=== PATIENT | female | born 1955 | race Caucasian/White ===

== ENCOUNTER 2018-09-29 09:50 | Emergency (ER) | payer MEDICARE, MEDICAID ==
[~2018-09-29] VITALS: Ht 160 cm; Wt 92.0 kg
[2018-09-29 11:17] LABS: URINE BILIRUBIN - DIPSTICK NEGATIVE (NEGATIVE); URINE BLOOD DIPSTICK TRACE-INTACT (NEGATIVE); URINE GLUCOSE - DIPSTICK NEGATIVE (NEGATIVE); URINE KETONE NEGATIVE (NEGATIVE); URINE NITRITE - DIPSTICK NEGATIVE (Negative); URINE PROTEIN - DIPSTICK NEGATIVE (NEG-TRACE); URINE SPECIFIC GRAVITY 1.015; URINE UROBILINOGEN - DIPSTICK 0.2 E.U./dL (0.2)
[2018-09-29 11:20] LABS: URINE LEUK ESTERASE MODERATE (NEGATIVE)
[2018-09-29 11:21] LABS: URINE CLARITY SL CLOUDY; URINE COLOR STRAW
[2018-09-29 11:22] LABS: URINE BACTERIA FEW hpf; URINE EPITHELIAL CELLS FEW EPI/hpf (0-FEW); URINE RBC 0-2 RBC/hpf (0-5)
[2018-09-29] MEDS ORDERED: CIPROFLOXACN500 MG PO (11:27)
[2018-09-29 11:51] VITALS: BP 121/76
== END 2018-09-29 11:51 | disposition home or self-care (01) ==
LOC: ED 09:50
PROVIDERS: Emergency Medicine
PROC: 0T2BX0Z Change Drainage Device in Bladder, External Approach (ICD-10-PCS; principal; 2018-09-29)
DX: N39.0 Urinary tract infection, site not specified (principal); B96.1 Klebsiella pneumoniae [K. pneumoniae] as the cause of diseases classified elsewhere; Z86.73 Personal history of transient ischemic attack (TIA), and cerebral infarction without residual deficits; Z86.718 Personal history of other venous thrombosis and embolism

== ENCOUNTER 2018-12-01 15:12 | Emergency (ER) | payer MEDICARE, OTHER ==
[~2018-12-01] VITALS: Ht 160 cm; Wt 120.0 kg
[~2018-12-01 15:12] MED LIST: CIPROFLOXACN500 MG PO
[2018-12-01 15:47] LABS: URINE BILIRUBIN - DIPSTICK NEGATIVE (NEGATIVE); URINE BLOOD DIPSTICK NEGATIVE (NEGATIVE); URINE COLOR YELLOW; URINE GLUCOSE - DIPSTICK NEGATIVE (NEGATIVE); URINE KETONE NEGATIVE (NEGATIVE); URINE NITRITE - DIPSTICK NEGATIVE (Negative); URINE PROTEIN - DIPSTICK NEGATIVE (NEG-TRACE); URINE UROBILINOGEN - DIPSTICK 0.2 E.U./dL (0.2)
[2018-12-01 15:51] LABS: URINE LEUK ESTERASE SMALL (NEGATIVE); URINE RBC 0-2 RBC/hpf (0-5); URINE SQUAMOUS EPITHELIAL CELL FEW EPI/hpf (0-FEW)
[2018-12-01 16:27] LABS: HEMATOCRIT 41.4 % (37.0-47.0); HEMOGLOBIN 12.8 g/dl (12.0-16.0); IMMATURE GRANULOCYTES 0.3 % (0.0-5.0); MEAN CELL VOLUME 97.9 fL CALC (80.0-100.0); MEAN CORPUSCULAR HGB 30.3 pG CALC (26.0-32.0); MEAN CORPUSCULAR HGB CONC 30.9 g/L CALC (32.0-36.0); NEUT# 4.87 thou/uL (2.00-7.15); RED BLOOD COUNT 4.23 mill/uL (4.20-5.60); RED CELL DISTRI WIDTH 15.2 % (11.5-15.5)
[2018-12-01 16:38] LABS: ALBUMIN 4.4 g/dL (3.2-5.0); ALKALINE PHOSPHATASE 101 u/l (38-126); ANION GAP 15 (6-22 (CALC)); BILIRUBIN, TOTAL 0.5 mg/dL (0.0-1.4); BUN 14 mg/dL (8-23); BUN/CREATININE RATIO 23 (12-20 (CALC)); CARBON DIOXIDE 28 mmol/l (22-30); CHLORIDE 100 mmol/l (95-108); CREATININE 0.6 mg/dL (0.5-1.0); GFR > 60 ML/MIN (>=60 (CALC)); GFR FOR AFR.AMER. > 60 ML/MIN (>=60 (CALC)); POTASSIUM 3.8 mmol/l (3.5-5.1); SGOT/AST 22 u/l (9-36); SODIUM 139 mmol/l (137-146); TOTAL PROTEIN 8.1 g/dL (6.3-8.2)
[2018-12-01] MEDS ORDERED: SUMATRIPTAN25 MG PO (17:54)
[2018-12-01] MEDS ORDERED: ROPINIROLE1 MG PO (17:54)
[2018-12-01] MEDS ORDERED: POT CHLORIDE20 ME3 PO (17:55)
[2018-12-01] MEDS ORDERED: ELIQUIS5 MG PO (17:55)
[2018-12-01] MEDS ORDERED: MONTELUKAST SOD10 MG PO (17:55)
[2018-12-01] MEDS ORDERED: ALPRAZOLAM0.25 MG PO (17:56)
[2018-12-01] MEDS ORDERED: ULTRAM50 MG PO (17:57)
[2018-12-01] MEDS ORDERED: BENTYL10 MG PO (17:57)
[2018-12-01 18:19] VITALS: BP 119/51
== END 2018-12-01 18:31 | disposition home or self-care (01) ==
LOC: ED 15:12
PROVIDERS: Emergency Medicine
DX: R10.2 Pelvic and perineal pain (principal); M79.605 Pain in left leg; M79.604 Pain in right leg; G89.29 Other chronic pain; B96.4 Proteus (mirabilis) (morganii) as the cause of diseases classified elsewhere; R11.0 Nausea; N20.0 Calculus of kidney; K57.30 Diverticulosis of large intestine without perforation or abscess without bleeding; R30.0 Dysuria; R35.0 Frequency of micturition; R39.15 Urgency of urination
CPT/HCPCS: Q9967

== ENCOUNTER 2018-12-26 05:46 | Emergency (ER) | payer MEDICARE, OTHER ==
[~2018-12-26] VITALS: Ht 160 cm; Wt 105.4 kg
[~2018-12-26 05:46] MED LIST changes: +ALPRAZOLAM0.25 MG PO; +BENTYL10 MG PO; +ELIQUIS5 MG PO; +MONTELUKAST SOD10 MG PO; +POT CHLORIDE20 ME3 PO; +ROPINIROLE1 MG PO; +SUMATRIPTAN25 MG PO; +ULTRAM50 MG PO
[2018-12-26] MEDS ORDERED: CIPROFLOXACN500 MG PO (06:52)
[2018-12-26 06:56] VITALS: BP 115/61
== END 2018-12-26 07:22 | disposition home or self-care (01) ==
LOC: ED 05:46
PROC: 0T2BX0Z Change Drainage Device in Bladder, External Approach (ICD-10-PCS; principal; 2018-12-26)
DX: T83.031A Leakage of indwelling urethral catheter, initial encounter (principal); M21.371 Foot drop, right foot; F17.220 Nicotine dependence, chewing tobacco, uncomplicated; Y84.6 Urinary catheterization as the cause of abnormal reaction of the patient, or of later complication, without mention of misadventure at the time of the procedure; Z86.73 Personal history of transient ischemic attack (TIA), and cerebral infarction without residual deficits

== ENCOUNTER → 2019-02-02 | Outpatient (REF) | payer MEDICARE, OTHER ==
[~2019-02-02] MED LIST changes: +ANTIVERT12.5 MG PO; +IPRATROPIU0.5 MG/3 M IN; +KEFLEX500 M1 PO; +LAMICTAL150 MG PO; +LASIX 40 MG TAB40 MG PO; +LEVOTHYROXIN150 MC1 PO; +LOPRESSOR25 M1 PO; +LYRICA150 MG PO; +MIRTAZAPINE30 M2 PO; +OMEPRAZOLE20 M1 PO; +PERCOCET 5/325M1 TAB PO; +PRAVASTATIN SOD40 MG PO; +TRAZODONE HCL100 MG PO; +ZOLPIDEM5 M1 PO
[2019-02-02 10:47] LABS: HEMATOCRIT 38.2 % (37.0-47.0); IMMATURE GRANULOCYTES 0.4 % (0.0-5.0); MEAN CELL VOLUME 96.7 fL CALC (80.0-100.0); MEAN CORPUSCULAR HGB 30.4 pG CALC (26.0-32.0); MEAN CORPUSCULAR HGB CONC 31.4 g/L CALC (32.0-36.0); NEUT# 8.56 thou/uL (2.00-7.15); RED BLOOD COUNT 3.95 mill/uL (4.20-5.60)
[2019-02-02 11:14] LABS: C-REACTIVE PROTEIN 5.9 mg/dL (0-0.9)
[2019-02-02 11:43] LABS: TSH, 3RD GENERATION 5.88 uIU/mL (0.47 - 4.68)
== END | disposition home or self-care (01) ==
LOC: LAB 09:11
PROVIDERS: ATTEND Physician Assistant Medical
DX: E03.9 Hypothyroidism, unspecified (principal); M25.50 Pain in unspecified joint

== ENCOUNTER → 2019-02-04 | Outpatient (REF) | payer MEDICARE, OTHER | END | disposition home or self-care (01) | LOC: DI 10:11 | DX: R06.02 Shortness of breath (principal) ==

== ENCOUNTER 2019-03-02 11:00 | Emergency (ER) | payer MEDICARE, OTHER ==
[~2019-03-02] VITALS: Ht 160 cm; Wt 106.8 kg
[~2019-03-02 11:00] MED LIST changes: -ANTIVERT12.5 MG PO; -ELIQUIS5 MG PO; -IPRATROPIU0.5 MG/3 M IN; -KEFLEX500 M1 PO; -LAMICTAL150 MG PO; -LASIX 40 MG TAB40 MG PO; -LEVOTHYROXIN150 MC1 PO; -LOPRESSOR25 M1 PO; -MIRTAZAPINE30 M2 PO; -MONTELUKAST SOD10 MG PO; -OMEPRAZOLE20 M1 PO; -PERCOCET 5/325M1 TAB PO; -PRAVASTATIN SOD40 MG PO; -ROPINIROLE1 MG PO; -TRAZODONE HCL100 MG PO; -ZOLPIDEM5 M1 PO
[2019-03-02] MEDS ORDERED: ANTIVERT12.5 MG PO (11:30)
[2019-03-02] MEDS ORDERED: LEVOTHYROXIN150 MC1 PO (11:31)
[2019-03-02] MEDS ORDERED: ZOLPIDEM5 M1 PO (11:31)
[2019-03-02] MEDS ORDERED: MIRTAZAPINE30 M2 PO (11:31)
[2019-03-02] MEDS ORDERED: TRAZODONE HCL100 MG PO (11:32)
[2019-03-02] MEDS ORDERED: LAMICTAL150 MG PO (11:32)
[2019-03-02] MEDS ORDERED: PRAVASTATIN SOD40 MG PO (11:32)
[2019-03-02] MEDS ORDERED: IPRATROPIU0.5 MG/3 M IN (11:33)
[2019-03-02] MEDS ORDERED: MONTELUKAST SOD10 MG PO (11:34)
[2019-03-02] MEDS ORDERED: ROPINIROLE1 MG PO (11:34)
[2019-03-02] MEDS ORDERED: LOPRESSOR25 M1 PO (11:35)
[2019-03-02] MEDS ORDERED: LASIX 40 MG TAB40 MG PO (11:35)
[2019-03-02] MEDS ORDERED: OMEPRAZOLE20 M1 PO (11:36)
[2019-03-02] MEDS ORDERED: ELIQUIS5 MG PO (12:02)
[2019-03-02] MEDS ORDERED: KEFLEX500 M1 PO (13:17)
[2019-03-02] MEDS ORDERED: PERCOCET 5/325M1 TAB PO (13:17)
[2019-03-02 13:23] VITALS: BP 139/66
== END 2019-03-02 13:45 | disposition home or self-care (01) ==
LOC: ED 11:00
DX: S92.521A Displaced fracture of middle phalanx of right lesser toe(s), initial encounter for closed fracture (principal); M54.5 Low back pain; M25.511 Pain in right shoulder; I10 Essential (primary) hypertension; M21.371 Foot drop, right foot; W06.XXXA Fall from bed, initial encounter; Y92.003 Bedroom of unspecified non-institutional (private) residence as the place of occurrence of the external cause